=== PATIENT | male | born 2005 | race Caucasian/White ===

== ENCOUNTER 2025-01-27 09:39 | Outpatient (REF) | payer BC, SELFPAY ==
--- NOTE | ~2025-01-27 | US_ITS ---
EXAMINATION: US SCROTUM CLINICAL INFORMATION: Testicular pain, left side.. COMPARISON: None available. TECHNIQUE: A sonogram of the scrotum was performed assessing byers-scale appearance and color Doppler flow. Spectral Doppler analysis of the arterial and venous flow were performed in the testes bilaterally. FINDINGS: RIGHT: Right testicle measures 5.6 x 2.4 x 3.2 cm,.. No focal testicular parenchymal lesions are visualized. Spectral Doppler analysis of the arterial and venous flow is normal in the right testis. Right epididymal head is normal in size. No right hydrocele or varicocele is seen. Right epididymal Doppler flow is normal. LEFT: Left testicle measures 5.3 x 2.5 x 3.0 cm. No focal testicular parenchymal lesions are visualized. Spectral Doppler analysis of the arterial and venous flow is normal in the left testis. Left epididymal head is normal in size. No hydrocele. Prominent pampiniform plexus during Valsalva maneuvers measuring 33 mm in diameter. Left epididymal Doppler flow is normal. US/US scrotum IMPRESSION: Varicocele, left-sided. No testicular torsion. No testicular mass. Electronically signed by: Chandler Gilbert MD 01/27/2025 11:30 AM EDT
== END 2025-01-27 09:40 | disposition home or self-care (01) ==
LOC: HO.UMASIMG 09:39
PROVIDERS: Visit Provider Emergency Medicine
DX: N50.819 Testicular pain, unspecified (principal)
CPT/HCPCS: 76870

== ENCOUNTER → 2025-01-27 10:30 | Outpatient (BNV) | payer BC, SELFPAY | PROVIDERS: Visit Provider Radiology Diagnostic Radiology | DX: N50.812 Left testicular pain (principal) | CPT/HCPCS: 76870; 93975 ==